=== PATIENT | female | born 1980 | race Two or more races ===

== ENCOUNTER 2021-01-27 13:00 | Emergency (ER) | payer MEDICAID, OTHER ==
[~2021-01-27] VITALS: Ht 157.5 cm; Wt 53.0 kg
[2021-01-27] MEDS ORDERED: ONDANSETRON 2MG/ML, 2ML ONE ×2 (13:02→17:44)
--- NOTE | 2021-01-27 13:10 | NUR ---
PT BIB EMS FROM [facility] WHERE APPARENTLY PT WAS PARTYING WITH FRIENDS AND TOOK UNKNOWN PILL FROM SOME STRANGE MAN. PER PT FRIEND, PT CAME BACK TO [facility] ROOM PALE AND LETHARGIC. EMS CALLED TO SCENE. UPON ARRIVAL TO [facility], EMS STATED PT WAS AAOX2 WITH CONSTRICTED PUPILS AND SLUGGISH RESPONSE TO LIGHT. PIV ACCESS ESTABLISHED BY MEDIC AND 150 ML OF NS WAS ADMINISTERED. UPON ARRIVAL TO [facility] ED, PT WAS AAOX4 AND RESPONSIVE TO VERBAL CUES, BUT PT IS DROWSY. PT CHANGED INTO GOWN IN [facility] AND ATTACHED TO CARDIAC MONITORS AND VS MACHINES AT THIS TIME. VSS. DR ARRIAZA AWARE OF HR. NEW VERBAL ORDERS RECEIVED FOR IV FLUIDS AND ANTIEMETIC. PT EDUCATED ON ER PROCESS AND POC AND VERBALIZES UNDERSTANDING. CALL LIGHT IS WITHIN REACH OF PT AT THIS TIME. PT PLACED ON 2L 02 NC TO MAINTAIN OXYGEN SATURATION ABOVE 95%.
--- NOTE | 2021-01-27 13:22 | NUR ---
PT MEDICATED PER MAR AT THIS TIME. BS REPORT OF PT TO CHACHO LIM AT THIS TIME. ALL QUESTIONS ANSWERED.
[2021-01-27] MEDS ORDERED: ONDANSETRON 2MG/ML, 2ML IVPush ONE ×2 (13:30→17:30)
[2021-01-27] MEDS ORDERED: SODIUM CHLORIDE 0.9%, 500ML IVBOLUS ONE (13:30)
[2021-01-27 13:37] LABS: MEAN CORPUSCULAR HGB CONC 33.7 g/dL (32.4-35.8); MEAN PLATELET VOLUME 6.6 fL (7.4-10.4); PLATELET COUNT 420 x10^3/uL (130-400)
[2021-01-27 13:38] LABS: ALANINE AMINOTRANSFERASE 59 U/L (12-78); ALBUMIN 3.5 g/dL (3.4-5.0); ANION GAP 14 mmol/L (5-15); CALCIUM 7.8 mg/dL (8.5-10.1); CHLORIDE 108 mmol/L (98-107); CREATININE 0.77 mg/dL (0.55-1.02)
[2021-01-27 13:42] LABS: SALICYLATE LEVEL < 1.7 mg/dL (2.8-20.0)
[2021-01-27 13:44] LABS: ALKALINE PHOSPHATASE 78 U/L (45-117); BILIRUBIN,TOTAL 0.3 mg/dL (0.2-1.0); TOTAL PROTEIN 7.6 g/dL (6.4-8.2)
[2021-01-27 14:23] LABS: BAND#(MANUAL) 0.47 x10^3/uL; BANDS%(MANUAL) 2 % (0-7); LYMPH#(MANUAL) 0.24 x10^3/uL (1-3.4); LYMPHS% (MANUAL) 1 % (22-44); MONOS#(MANUAL) 0.95 x10^3/uL (0.3-2.7); MONOS% (MANUAL) 4 % (2-9); SEG#(MANUAL) 22.04 x10^3/uL (1.8-6.8); SEGS% (MANUAL) 93 % (42-75)
[2021-01-27 14:25] LABS: <PLATELET ESTIMATE> INCREASED; <PLT MORPHOLOGY> NORMAL PLT MORPH; <RBC MORPHOLOGY> NORMAL
[2021-01-27] MEDS ORDERED: POTASSIUM CHLORIDE 20 MEQ TAB.ER.PRT PO ONE (15:00)
[2021-01-27] MEDS ORDERED: PLEASE ENTER ALLERGIES MC SCH (15:00)
[2021-01-27] MEDS ORDERED: POTASSIUM CHLORIDE 20 MEQ TAB.ER.PRT ONE (15:19)
[2021-01-27] MEDS ORDERED: SODIUM CHLORIDE 0.9% 1,000 ML IV ONE (15:30)
[2021-01-27] MEDS ORDERED: CEFTRIAXONE 1,000 MG in DEXTROSE 5% 50 ML IVPB ONE (15:30)
[2021-01-27] MEDS ORDERED: PLEASE ENTER HEIGHT AND WEIGHT MC SCH (15:30)
--- NOTE | 2021-01-27 16:23 | NUR ---
PT STEADY AMBULATION TO BATHROOM FOR URINE SAMPLE COLLECTION, BACK RESTING IN BED.
[2021-01-27 17:02] LABS: MICROSCOPIC INDICATED
--- NOTE | 2021-01-27 17:25 | NUR ---
NIKOLAY ARRIAZA AT BEDSIDE
[2021-01-27] MEDS ORDERED: LORazepam 2 MG/ML, 1ML IV ONE (17:30)
[2021-01-27 17:39] LABS: AMPHETAMINE SCREEN, URINE Negative (Negative); BARBITURATE SCREEN, URINE Negative (Negative); BENZODIAZEPINE SCREEN, URINE Negative (Negative); CANNABINOID SCREEN, URINE Negative (Negative); COCAINE SCREEN, URINE Positive (Negative); METHADONE SCREEN, URINE Negative (Negative); OPIATE SCREEN, URINE Negative (Negative)
[2021-01-27] MEDS ORDERED: LORazepam 2 MG/ML, 1ML ONE (17:40)
[2021-01-27 17:46] VITALS: BP 158/102
--- NOTE | 2021-01-27 18:31 | NUR ---
NIKOLAY ARRIAZA AT BEDSIDE FOR QUESTIONS
--- NOTE | 2021-01-27 18:32 | NUR ---
DC INSTRUCTIONS REVIEWED
== END 2021-01-27 18:38 | disposition home or self-care (01) ==
LOC: ED 17:01 → EDIP 17:17 → UNDOADMOB 17:17 → ED 18:38
DX: E86.0 Dehydration (principal); F14.10 Cocaine abuse, uncomplicated; G92 Toxic encephalopathy; N39.0 Urinary tract infection, site not specified; E87.6 Hypokalemia
CPT/HCPCS: 36415; 80053; 80299; 80307; 80320; 80329; 81001; 83605; 83735; 84145; 84703; 85025; 87040; 87077; 87086; 87186; 93005; 96361; 96365; 96375; 96376; 99285; J0696; J2060; J2405; J7030; J7040; G0480